=== PATIENT | male | born 1945 | race Caucasian/White ===

== ENCOUNTER → 2016-05-24 | Day surgery (SDC) | payer OTHER ==
[2016-05-18 11:19] VITALS: BMI 27.0
[~2016-05-24] VITALS: Ht 167.6 cm; Wt 77.3 kg
[~2016-05-24] MED LIST: ALEN70TA2 PO; CALC-393 PO; CHOL2000 PO; HYDR-5688 PO; LEVO50TA6 PO; LIDOCAINE HCL 2% 2 ML VIAL (20MG/ML) ONE; LOSA1TAB PO; LOVA10TA3 PO; MIDAZOLAM HCL 1 MG/ML 2ML VIAL ONE; ONDANSETRON INJ 2 MG/ML 2 ML VIAL ONE; PROPOFOL IV EMULSION 10 MG/ML 20 ML VIAL IV ONE; SODIUM CHLORIDE 0.9% 500ML 500 ML IV ONE
[2016-05-24 13:12] VITALS: Ht 167.6 cm; Wt 77.3 kg
--- NOTE | 2016-05-24 13:19 | Endo History and Physical ---
History & Physical Date of Service: May 24, 2016. Chief Complaint: History of colon polyps Referring Physician: Dr. Flaherty History of Present Illness 70 yo CM who presents for colonoscopy secondary to history of colon polyps. Past Medical History High Cholesterol, Hypertension, Other Past Surgical History Hx Cardiac Surgery: No Hx Internal Defibrillator: No Hx Pacemaker: No Hx Abdominal Surgery: No Hx of Implantable Prosthesis: No Hx Post-Op Nausea and Vomiting: No Hx Cancer Surgery: No Hx Thoracic Surgery: No Hx Orthopedic: Yes (LUMBAR DECOMPR. FUSION L3-L5 S1) Hx Urinary Tract Surgery: No Family History None Social History Smoking Status: Never Smoker Hx Substance Use: No Hx Alcohol Use: Yes (RARELY) Allergies Coded Allergies: No Known Allergies (Unverified , 05/24/16) Current Medications Reported Home Medications Medications Dose Route/Sig Max Daily Dose Days Date Category Vitamin D3 (Cholecalciferol) 2,000 Unit Cap 1 Cap PO BID 90 05/18/16 Reported Calcium (Calcium Carbonate) 600 Mg Tab 1 Tab PO BID 05/18/16 Reported Mevacor (Lovastatin) 10 Mg Tab 5 Mg PO QPM 05/18/16 Reported Cozaar (Losartan Potassium) 25 Mg Tab 25 Mg PO QAM 05/18/16 Reported Levothyroxine Sodium 50 Mcg Tab 1 Tab PO QAM 90 05/18/16 Reported Fosamax (Alendronate Sodium) 70 Mg Tab 70 Mg PO WK 05/18/16 Reported Vital Signs Weight (Kilograms): 77.27 Height (Feet): 5 Height (Inches): 6 Physical Exam General Appearance: WD/WN, no apparent distress Respiratory/Chest: Auscultation: breath sounds normal Cardiovascular: Heart Auscultation: RRR Abdomen: Bowel Sounds: normal Inspection & Palpation: soft, non-distended, no tenderness, guarding & rebound Assessment and Plan Assessment: 70 yo CM who presents for colonoscopy secondary to history of colon polyps. Plan: Proceed with colonoscopy.
--- NOTE | 2016-05-24 14:46 | Discharge Instructions ---
Endoscopy Patient Instructions Date / Procedure(s) Performed May 24, 2016. Colonoscopy Allergy Information Coded Allergies: No Known Allergies (Unverified , 05/24/16) Discharge Date / Findings May 24, 2016. Colon polyp Diverticulosis Internal hemorrhoids Medication Instructions Stopped Medication(s): NO VIT D OR CALCIUM OK to resume all medications today as prescribed Reported Home Medications Medications Dose Route/Sig Max Daily Dose Days Date Category Vitamin D3 (Cholecalciferol) 2,000 Unit Cap 1 Cap PO BID 90 05/18/16 Reported Calcium (Calcium Carbonate) 600 Mg Tab 1 Tab PO BID 05/18/16 Reported Mevacor (Lovastatin) 10 Mg Tab 5 Mg PO QPM 05/18/16 Reported Cozaar (Losartan Potassium) 25 Mg Tab 25 Mg PO QAM 05/18/16 Reported Levothyroxine Sodium 50 Mcg Tab 1 Tab PO QAM 90 05/18/16 Reported Fosamax (Alendronate Sodium) 70 Mg Tab 70 Mg PO WK 05/18/16 Reported Provider Instructions Activity Restrictions - No exercising or heavy lifting for 24 hours. - Do not drink alcohol the day of the procedure. - Do not drive a car or operate machinery until the day after the procedure. - Do not make any important decisions or sign important papers in 24 hours after the procedure. Following Day: - Return to full activity which may include returning to work/school. Diet Start your diet with liquids and light foods (jello, soup, juice, toast). Then eat your usual diet if not nauseated. Treatment For Common After Affects For mild abdominal pain, bloating, or excessive gas: - Rest - Eat lightly - Lie on right side Follow-Up Information Follow-up with PAO PARADA as scheduled Anesthesia Information What You Should Know You have had a procedure that required some medicine to reduce anxiety and discomfort. This treatment is called moderate sedation. After receiving the treatment, you may be sleepy, but you will be able to breathe on your own. The effects of the treatment may last for several hours. Follow these instructions along with Activity/Diet recommendations noted above: * Do NOT do anything where dizziness or clumsiness would be dangerous. * Rest quietly at home today, then you can be up and about tomorrow. * Have a responsible person stay with you the rest of today. * You may have had an I.V. today. If so, you may take the dressing off later today. Recommendations Call your doctor if: * Trouble breathing * Continuous vomiting for more than 24 hours * Temperature above 101 degrees * Severe abdominal pain or bloating * Pain not relieved by pain medicine ordered * There is increased drainage or redness from any incision * A large amount of rectal bleeding greater than 2-3 tablespoons. (If you had a polyp/s removed or have hemorrhoids, a small amount of blood - from the rectum is to be expected.) * You have any unanswered questions or concerns. IN THE EVENT OF A SERIOUS EMERGENCY, GO TO THE NEAREST EMERGENCY ROOM Your discharge instructions were prepared by provider Robert Alvarenga. Patient Instructions Signature Page Johnson Pearson Patient (or Guardian) Signature/Date: I have read and understand the instructions given to me by my caregivers. Caregiver/RN/Doctor Signature/Date: The above-named patient and/or guardian has received patient instructions on this date. + Original Patient Signature Page (only) stays with chart. Please make copy for patient.
--- NOTE | 2016-05-24 14:55 | GI REPORT ---
Procedure Date: 05/24/2016 2:07 PM Procedure: Colonoscopy Indications: High risk colon cancer surveillance: Personal history of colonic polyps Medicines: Monitored Anesthesia Care Complications: No immediate complications. Estimated Blood Loss: Estimated blood loss: none. Procedure: Pre-Anesthesia Assessment: - Prior to the procedure, a History and Physical was performed, and patient medications and allergies were reviewed. The patient's tolerance of previous anesthesia was also reviewed. The risks and benefits of the procedure and the sedation options and risks were discussed with the patient. All questions were answered, and informed consent was obtained. Prior Anticoagulants: The patient has taken no previous anticoagulant or antiplatelet agents. ASA Grade Assessment: II - A patient with mild systemic disease. After reviewing the risks and benefits, the patient was deemed in satisfactory condition to undergo the procedure. After I obtained informed consent, the scope was passed under direct vision. Throughout the procedure, the patient's blood pressure, pulse, and oxygen saturations were monitored continuously. The On-site loaner was introduced through the anus and advanced to the terminal ileum. The colonoscopy was performed without difficulty. The patient tolerated the procedure well. The quality of the bowel preparation was good. The terminal ileum, ileocecal valve, appendiceal orifice, and rectum were photographed. Findings: A 20 mm polyp was found in the ascending colon. The polyp was flat. The polyp was removed with a saline injection-lift technique using a hot snare. Resection and retrieval were complete. To prevent bleeding after the polypectomy, four hemostatic clips were successfully placed (MR conditional). There was no bleeding at the end of the procedure. Multiple small-mouthed diverticula were found in the sigmoid colon. Non-bleeding internal hemorrhoids were found during retroflexion. The hemorrhoids were small. Impression: - One 20 mm polyp in the ascending colon, removed using injection-lift and a hot snare. Resected and retrieved. Clips (MR conditional) were placed. - Diverticulosis in the sigmoid colon. - Non-bleeding internal hemorrhoids. Recommendation: - Resume previous diet. - Continue present medications. - Repeat colonoscopy in 6 months to review the polypectomy site. - Return to primary care physician as previously scheduled. Robert Alvarenga DO 05/24/2016 2:55:18 PM This report has been signed electronically. Note Initiated On: 05/24/2016 2:07 PM I attest to the content of the Intraoperative Record and orders documented therein, exceptions below
[2016-05-24 15:20] VITALS: BP 147/84; PULSE 69; O2SAT 98
--- NOTE | 2016-05-24 15:21 | Anesthesiology Progress Note ---
Anesthesia Post Op Note Date & Time May 24, 2016 at 15:21 Vital Signs Pain Intensity: 0 Vital Signs Past 12 Hours Date Time Temp Pulse Resp B/P Pulse Ox O2 Delivery O2 Flow Rate FiO2 05/24/16 15:05 73 18 148/83 97 Room Air 05/24/16 14:50 70 18 144/82 96 Room Air 05/24/16 13:24 36.4 90 18 134/82 98 Room Air Notes Mental Status: alert / awake / arousable, participated in evaluation Pt Amnestic to Procedure: Yes Nausea / Vomiting: adequately controlled Pain: adequately controlled Airway Patency, RR, SpO2: stable & adequate BP & HR: stable & adequate Hydration State: stable & adequate Anesthetic Complications: no major complications apparent
== END | disposition home or self-care (01) ==
LOC: C.GI 12:51
PROVIDERS: ATTEND Internal Medicine
DX: Z12.11 Encounter for screening for malignant neoplasm of colon (principal); D12.2 Benign neoplasm of ascending colon; Z86.010 Personal history of colon polyps; K64.9 Unspecified hemorrhoids; K57.31 Diverticulosis of large intestine without perforation or abscess with bleeding; I10 Essential (primary) hypertension; E78.00 Pure hypercholesterolemia, unspecified

== ENCOUNTER → 2016-10-23 | Outpatient (CLI) | payer OTHER ==
[~2016-10-23] MED LIST changes: -LIDOCAINE HCL 2% 2 ML VIAL (20MG/ML) ONE; -MIDAZOLAM HCL 1 MG/ML 2ML VIAL ONE; -ONDANSETRON INJ 2 MG/ML 2 ML VIAL ONE; -PROPOFOL IV EMULSION 10 MG/ML 20 ML VIAL IV ONE; -SODIUM CHLORIDE 0.9% 500ML 500 ML IV ONE
[2016-10-23 13:51] LABS: ALT/SGPT 38 U/L (12-78); AST/SGOT 36 U/L (15-37); BLOOD UREA NITROGEN 17 mg/dl (7-18); BUN/CREATININE RATIO 13.2 (10-20); CALCIUM 9.3 mg/dl (8.5-10.1); CARBON DIOXIDE 28 mmol/L (21-32); CHLORIDE 107 mmol/L (98-107); GLUCOSE 89 mg/dl (70-99); POTASSIUM 4.1 mmol/L (3.5-5.1); SODIUM 141 mmol/L (136-145)
[2016-10-23 14:02] LABS: CHOLESTEROL 162 mg/dl (0-200); CHOLESTEROL/HDL RATIO 4.8; HDL CHOLESTEROL 34 mg/dl; LDL CHOLESTEROL CALCULATED 94 mg/dl; PROSTATE SPECIFIC ANTIGEN 0.742 ng/ml (0.000-4.000); TRIGLYCERIDES 172 mg/dl (0-150); VERY LOW DENSITY LIPOPROT CALC 34 mg/dl
== END | disposition home or self-care (01) ==
LOC: C.LABMFLN 07:46
PROVIDERS: ATTEND Family Medicine
DX: I10 Essential (primary) hypertension (principal); E78.00 Pure hypercholesterolemia, unspecified; Z12.5 Encounter for screening for malignant neoplasm of prostate; M81.0 Age-related osteoporosis without current pathological fracture; E03.9 Hypothyroidism, unspecified; E55.9 Vitamin D deficiency, unspecified

== ENCOUNTER → 2016-12-10 | Day surgery (SDC) | payer OTHER ==
[2016-11-26 15:47] VITALS: Ht 168.9 cm; Wt 77.3 kg
[~2016-12-10] VITALS: Ht 168.9 cm; Wt 77.3 kg
[~2016-12-10] MED LIST changes: -ALEN70TA2 PO; +PROPOFOL IV EMULSION 10 MG/ML 20 ML VIAL IV ONE; +SODIUM CHLORIDE 0.9% 500ML 500 ML IV ONE
--- NOTE | 2016-12-10 13:02 | Endo History and Physical ---
History & Physical Date of Service: Dec 10, 2016. Chief Complaint: piecemeal removal of sessile serated polyp Referring Physician: Dr. Sonny Flaherty History of Present Illness 71 yo CM who presents for colonoscopy secondary to piecemeal removal of colon polyp. Past Medical History High Cholesterol, Hypertension, Other Past Surgical History Hx Cardiac Surgery: No Hx Internal Defibrillator: No Hx Pacemaker: No Hx Abdominal Surgery: No Hx Post-Op Nausea and Vomiting: No Hx Cancer Surgery: No Hx Thoracic Surgery: No Hx Orthopedic: Yes (LUMBAR DECOMPR. FUSION L3-L5 S1) Hx Urinary Tract Surgery: No Family History None Social History Smoking Status: Never Smoker Hx Substance Use: No Hx Alcohol Use: Yes (RARELY) Allergies Coded Allergies: No Known Allergies (Verified , 12/10/16) Current Medications Reported Home Medications Medications Dose Route/Sig Max Daily Dose Days Date Category Vitamin D3 (Cholecalciferol) 2,000 Unit Cap 1 Cap PO QPM 90 05/18/16 Reported Calcium (Calcium Carbonate) 600 Mg Tab 1 Tab PO DAILY AT NOON 05/18/16 Reported Mevacor (Lovastatin) 10 Mg Tab 5 Mg PO QPM 05/18/16 Reported Cozaar (Losartan Potassium) 25 Mg Tab 25 Mg PO QAM 05/18/16 Reported Levothyroxine Sodium 50 Mcg Tab 1 Tab PO QAM 90 05/18/16 Reported Vital Signs Weight (Kilograms): 77.27 Height (Feet): 5 Height (Inches): 6.5 Physical Exam General Appearance: WD/WN, no apparent distress Respiratory/Chest: Auscultation: breath sounds normal Cardiovascular: Heart Auscultation: RRR Abdomen: Bowel Sounds: normal Inspection & Palpation: soft, non-distended, no tenderness, guarding & rebound Assessment and Plan Assessment: 71 yo CM who presents for colonoscopy secondary to piecemeal removal of colon polyp. Plan: Proceed with colonoscopy.
--- NOTE | 2016-12-10 14:24 | GI REPORT ---
Procedure Date: 12/10/2016 12:58 PM Procedure: Colonoscopy Indications: High risk colon cancer surveillance: Personal history of colonic polyps Medicines: Monitored Anesthesia Care Complications: No immediate complications. Estimated Blood Loss: Estimated blood loss: none. Procedure: Pre-Anesthesia Assessment: - Prior to the procedure, a History and Physical was performed, and patient medications and allergies were reviewed. The patient's tolerance of previous anesthesia was also reviewed. The risks and benefits of the procedure and the sedation options and risks were discussed with the patient. All questions were answered, and informed consent was obtained. Prior Anticoagulants: The patient has taken no previous anticoagulant or antiplatelet agents. ASA Grade Assessment: II - A patient with mild systemic disease. After reviewing the risks and benefits, the patient was deemed in satisfactory condition to undergo the procedure. After I obtained informed consent, the scope was passed under direct vision. Throughout the procedure, the patient's blood pressure, pulse, and oxygen saturations were monitored continuously. The Scope was introduced through the anus and advanced to the terminal ileum. The colonoscopy was performed without difficulty. The patient tolerated the procedure well. The quality of the bowel preparation was good. The terminal ileum, ileocecal valve, appendiceal orifice, and rectum were photographed. Findings: Multiple small-mouthed diverticula were found in the sigmoid colon. Non-bleeding internal hemorrhoids were found during retroflexion. The hemorrhoids were small. Impression: - Diverticulosis in the sigmoid colon. - Non-bleeding internal hemorrhoids. - No specimens collected. Recommendation: - Resume previous diet. - Continue present medications. - Repeat colonoscopy in 5 years for surveillance. - Return to primary care physician as previously scheduled. Robert Alvarenga DO 12/10/2016 2:24:16 PM This report has been signed electronically. Note Initiated On: 12/10/2016 12:58 PM I attest to the content of the Intraoperative Record and orders documented therein, exceptions below
--- NOTE | 2016-12-10 14:38 | Anesthesiology Progress Note ---
Anesthesia Post Op Note Date & Time Dec 10, 2016 at 14:38 Vital Signs Pain Intensity: 0 Vital Signs Past 12 Hours Date Time Temp Pulse Resp B/P (MAP) Pulse Ox O2 Delivery O2 Flow Rate FiO2 12/10/16 13:00 36.3 61 18 145/76 (99) 96 Room Air Notes Mental Status: alert / awake / arousable, participated in evaluation Pt Amnestic to Procedure: Yes Nausea / Vomiting: adequately controlled Pain: adequately controlled Airway Patency, RR, SpO2: stable & adequate BP & HR: stable & adequate Hydration State: stable & adequate Anesthetic Complications: no major complications apparent
--- NOTE | 2016-12-10 14:55 | Discharge Instructions ---
Endoscopy Patient Instructions Date / Procedure(s) Performed Dec 10, 2016. Colonoscopy Allergy Information Coded Allergies: No Known Allergies (Verified , 12/10/16) Discharge Date / Findings Dec 10, 2016. Diverticulosis Internal hemorrhoids Medication Instructions OK to resume all medications today as prescribed Reported Home Medications Medications Dose Route/Sig Max Daily Dose Days Date Category Vitamin D3 (Cholecalciferol) 2,000 Unit Cap 1 Cap PO QPM 90 05/18/16 Reported Calcium (Calcium Carbonate) 600 Mg Tab 1 Tab PO DAILY AT NOON 05/18/16 Reported Mevacor (Lovastatin) 10 Mg Tab 5 Mg PO QPM 05/18/16 Reported Cozaar (Losartan Potassium) 25 Mg Tab 25 Mg PO QAM 05/18/16 Reported Levothyroxine Sodium 50 Mcg Tab 1 Tab PO QAM 90 05/18/16 Reported Provider Instructions Activity Restrictions - No exercising or heavy lifting for 24 hours. - Do not drink alcohol the day of the procedure. - Do not drive a car or operate machinery until the day after the procedure. - Do not make any important decisions or sign important papers in 24 hours after the procedure. Following Day: - Return to full activity which may include returning to work/school. Diet Start your diet with liquids and light foods (jello, soup, juice, toast). Then eat your usual diet if not nauseated. Treatment For Common After Affects For mild abdominal pain, bloating, or excessive gas: - Rest - Eat lightly - Lie on right side Follow-Up Information Follow-up with Dr. Sonny Flaherty as scheduled Anesthesia Information What You Should Know You have had a procedure that required some medicine to reduce anxiety and discomfort. This treatment is called moderate sedation. After receiving the treatment, you may be sleepy, but you will be able to breathe on your own. The effects of the treatment may last for several hours. Follow these instructions along with Activity/Diet recommendations noted above: * Do NOT do anything where dizziness or clumsiness would be dangerous. * Rest quietly at home today, then you can be up and about tomorrow. * Have a responsible person stay with you the rest of today. * You may have had an I.V. today. If so, you may take the dressing off later today. Recommendations Call your doctor if: * Trouble breathing * Continuous vomiting for more than 24 hours * Temperature above 101 degrees * Severe abdominal pain or bloating * Pain not relieved by pain medicine ordered * There is increased drainage or redness from any incision * A large amount of rectal bleeding greater than 2-3 tablespoons. (If you had a polyp/s removed or have hemorrhoids, a small amount of blood - from the rectum is to be expected.) * You have any unanswered questions or concerns. IN THE EVENT OF A SERIOUS EMERGENCY, GO TO THE NEAREST EMERGENCY ROOM Your discharge instructions were prepared by provider Robert Alvarenga. Patient Instructions Signature Page Johnson Pearson Patient (or Guardian) Signature/Date: I have read and understand the instructions given to me by my caregivers. Caregiver/RN/Doctor Signature/Date: The above-named patient and/or guardian has received patient instructions on this date. + Original Patient Signature Page (only) stays with chart. Please make copy for patient.
[2016-12-10 14:59] VITALS: BP 140/77; PULSE 62; O2SAT 98
== END | disposition home or self-care (01) ==
LOC: C.GI 12:15
PROVIDERS: ATTEND Internal Medicine
DX: Z12.11 Encounter for screening for malignant neoplasm of colon (principal); K57.30 Diverticulosis of large intestine without perforation or abscess without bleeding; K64.8 Other hemorrhoids; Z86.010 Personal history of colon polyps; E78.00 Pure hypercholesterolemia, unspecified; I10 Essential (primary) hypertension; Z79.899 Other long term (current) drug therapy

== ENCOUNTER 2017-01-03 06:33 | Day surgery (SDC) | payer OTHER ==
[2016-12-12 09:16] VITALS: BMI 26.0
--- NOTE | 2016-12-12 09:54 | PAT Medication Instructions ---
Service Date Dec 12, 2016. Current Home Medication List Calcium Carbonate (Calcium), 1 TAB PO DAILY AT NOON Cholecalciferol (Vitamin D3), 1 CAP PO DAILY AT NOON Levothyroxine Sodium (Levothyroxine Sodium), 1 TAB PO QAM Losartan Potassium (Cozaar), 25 MG PO QAM Lovastatin (Mevacor), 5 MG PO QPM Medication Instructions For Your Scheduled Surgery - Hold the following medications the morning of surgery: Calcium Carbonate (Calcium), 1 TAB PO DAILY AT NOON Cholecalciferol (Vitamin D3), 1 CAP PO DAILY AT NOON Losartan Potassium (Cozaar), 25 MG PO QAM - Take the following medications the morning of surgery with a sip of water otherwise nothing to eat or drink after midnight: Levothyroxine Sodium (Levothyroxine Sodium), 1 TAB PO QAM - Take the following medications as scheduled the night before surgery: Lovastatin (Mevacor), 5 MG PO QPM If you have any questions please call us at [phone] or [phone] or [phone]
[2016-12-12 10:41] LABS: BASO % 0.2 %; BASO ABS # 0.01 K/uL (0-0.2); COMPLETE YES; EOS % 1.2 %; HEMATOCRIT 43.9 % (42-52); IG% 0.2 %; LYMPH % 18.6 %; LYMPH ABS # 1.11 K/uL (1.2-3.4); MEAN CELL VOLUME 92.2 fL (80-100); MEAN CORPUSCULAR HEMOGLOBIN 33.6 pg (25-34); MEAN CORPUSCULAR HGB CONC 36.4 g/dl (32-36); MEAN PLATELET VOLUME 9.6 fL (7.4-10.4); MONO % 9.7 %; NEUT % 70.1 %; PLATELET COUNT 187 K/uL (130-400); RED BLOOD COUNT 4.76 M/uL (4.7-6.1); WHITE BLOOD COUNT 5.96 K/uL (4.8-10.8)
[2016-12-12 10:48] LABS: BUN/CREATININE RATIO 10.9 (10-20); CALCIUM 9.5 mg/dl (8.5-10.1); CREATININE 1.1 mg/dl (0.60-1.40); POTASSIUM 4.4 mmol/L (3.5-5.1)
[~2017-01-03] VITALS: Ht 170.2 cm; Wt 77.7 kg
[~2017-01-03 06:33] MED LIST changes: +CEFAZOLIN 2000 MG/60 ML D5W IV SCH; -HYDR-5688 PO; +LACTATED RINGER'S 1000ML 1,000 ML IV SCH; -PROPOFOL IV EMULSION 10 MG/ML 20 ML VIAL IV ONE; -SODIUM CHLORIDE 0.9% 500ML 500 ML IV ONE
[2017-01-03 07:02] VITALS: BP 139/85; PULSE 61; TEMP 36.4; O2SAT 96; Ht 170.2 cm; Wt 77.7 kg
[2017-01-03] MEDS ORDERED: MIDAZOLAM HCL 1 MG/ML 2ML VIAL ONE (07:48)
[2017-01-03] MEDS ORDERED: LIDOCAINE HCL 2% 2 ML VIAL (20MG/ML) ONE (07:48)
[2017-01-03] MEDS ORDERED: PROPOFOL IV EMULSION 10 MG/ML 20 ML VIAL IV ONE (07:48)
[2017-01-03] MEDS ORDERED: FENTANYL CITRATE INJ 50 MCG/1 ML 2 ML VIAL ONE ×2 (07:49→09:44)
--- NOTE | 2017-01-03 08:07 | History & Physical Bridge Note ---
H&P Re-Evaluation Bridge Note: I have examined the patient, reviewed the History & Physical and in the interval since the performance of the History & Physical I have noted the following changes of clinical significance: No changes noted
[2017-01-03] MEDS ORDERED: BUPIVACAINE/EPINEPHRINE 0.5% MPF 1:200,000 30 ML VIAL ONE (08:31)
[2017-01-03] MEDS ORDERED: HYDR-5688 PO (08:47)
--- NOTE | 2017-01-03 08:48 | Discharge Instructions ---
Discharge Instructions Date of Service Jan 03, 2017. Visit Reason for Visit: Bilateral Inguinal Hernias Discharge Discharge Diagnosis / Problem: inguinal hernia repairs Discharge Goals Goal(s): Decrease discomfort Activity Recommendations Activity Limitations: as noted below Lifting Limitations: no more than 10 pounds Shower/Bathe: tomorrow Driving or Machine Use: 1 week Anesthesia . Post Anesthesia Instructions: If you have had General Anesthesia or IV Sedation: * Do not drive today. * Resume driving when surgeon permits. * Do not make important decisions or sign legal documents today. * Call surgeon for: 1. Temperature elevations greater than 101 degrees F. 2. Uncontrollable pain. 3. Excessive bleeding. 4. Persistent nausea and vomiting. 5. Medication intolerance (nausea, vomiting or rash). * For nausea and vomiting use only clear liquids such as: tea, soda, bouillon until nausea subsides, then gradually increase diet as tolerated. * If you have any concerns or questions, call your surgeon's office. If physician is unavailable and it is an emergency, call 911 or go to the nearest emergency room. . Instructions / Follow-Up Instructions / Follow-Up Dr. Hernandez in 1-2 weeks as planned, call [phone] for any questions Ice each groin off and on alternating left and right every 20 minutes today Diet Recommendations Recommended Home Diet: no limitations Pending Studies Studies pending at discharge: no Medical Emergencies . Who to Call and When: Medical Emergencies: If at any time you feel your situation is an emergency, please call 911 immediately. . Non-Emergent Contact Non-Emergency issues call your: Surgeon Call Non-Emergent contact if: you have a fever, temperature is above 101.5, your pain is not controlled, wound has increased pain, you have any medication questions . . "Provider Documentation" section prepared by Josef Fox. .
[2017-01-03] MEDS ORDERED: ONDANSETRON INJ 2 MG/ML 2 ML VIAL ONE (09:00)
[2017-01-03] MEDS ORDERED: KETOROLAC TROMETHAMINE 30 MG/ML VIAL ONE (09:00)
[2017-01-03] MEDS ORDERED: DEXAMETHASONE SOD INJ 4 MG/ML VIAL ONE (09:00)
[2017-01-03] MEDS ORDERED: LACTATED RINGER'S 1000ML 1,000 ML IV SCH (10:02)
--- NOTE | 2017-01-03 10:07 | Anesthesiology Progress Note ---
Anesthesia Post Op Note Date & Time Jan 03, 2017 at 10:06 Vital Signs Pain Intensity: 0 Vital Signs Past 12 Hours Date Time Temp Pulse Resp B/P (MAP) Pulse Ox O2 Delivery O2 Flow Rate FiO2 01/03/17 07:02 36.4 61 18 139/85 (103) 96 Room Air Notes Mental Status: alert / awake / arousable, participated in evaluation Pt Amnestic to Procedure: Yes Nausea / Vomiting: adequately controlled Pain: adequately controlled Airway Patency, RR, SpO2: stable & adequate BP & HR: stable & adequate Hydration State: stable & adequate Anesthetic Complications: no major complications apparent
[2017-01-03] MEDS ORDERED: ONDANSETRON INJ 2 MG/ML 2 ML VIAL IV PRN (10:15)
[2017-01-03] MEDS ORDERED: KETOROLAC TROMETHAMINE 15 MG/ML VIAL IV. PRN (10:15)
[2017-01-03] MEDS ORDERED: MoRPHine SULFATE 2 MG/ML CARP IV PRN (10:15)
[2017-01-03] MEDS ORDERED: HYDROCODONE/ACETAMOPHEN 5/325MG TAB PO PRN (10:15)
--- NOTE | 2017-01-03 10:27 | [facility] Operative Report ---
Operative Report Operative Date Jan 03, 2017. Pre-Operative Diagnosis Bilateral Inguinal Hernia Post-Operative Diagnosis direct Bilateral Inguinal Hernias Procedure(s) Performed Open Bilateral Inguinal Hernia Repair with Mesh; plug and patch mesh on left side. Surgeon Dr. Hernandez Custom Grinder Surgeon(s) Yusuf Fox PA-C Estimated Blood Loss 10ML Findings moderate direct RIH; Large direct LIH Specimens None per surgeon Anesthesia get Disposition Recovery Room / PACU Description of Procedure After informed consent was obtained the patient was taken to the operating suite and placed in a supine position. After successful placement of the laryngeal mask airway the groins bilaterally were shaved and sterilely prepped and draped in usual fashion. We began on the right side. An inguinal incision was made with a 15 blade scalpel and carried down through the soft tissue using electrocautery. The external oblique aponeurosis was skeletonized and a fresh blade was used to make a small incision in it. Metzenbaum scissors were used to extend this down through the external ring as well as for several centimeters proximally. Once in the inguinal canal we were able to gently pull the cord and cord structures off the pubic bone with finger dissection and place a [place] around it. Immediately upon doing this we noticed the patient had a moderate size direct defect. We used small amounts electrocautery and blunt dissection to evaluate the cord and cord structures. There was no evidence whatsoever of an indirect hernia. The direct hernia was easily reducible and we used an onlay polypropylene mesh that was keyholed. We secured it distally to Murphy's ligament , laterally along the shelving portion of Poupart ligament and medially along the midline musculature. The "arms" were wrapped around the cord structures and secured to underlying muscle. We used 0 Ethibond for the sutures. We thoroughly irrigated the wound there was adequate hemostasis. We did inject some Marcaine around the edges of the mesh for postoperative analgesia. The mesh laid nice and tension free. We then closed the external oblique aponeurosis with 2-0 Vicryl in a running fashion. Soft tissue was irrigated and closed using 3-0 Vicryl and 4-0 Monocryl for the skin. Some additional Marcaine was injected around the skin and Dermabond was used as a dressing. We used the exact same technique for the left side. Upon entering the inguinal canal there was a very large what turned out to be direct hernia. We did skeletonized the cord and cord structures and again there was no evidence of an indirect hernia. Because of the large size it was somewhat difficult to keep reduced. We used an extra-large plug and patch mesh system. The plug was placed into the large defect secured to the midline musculature as well as the shelving portion of Poupart's ligament with 0 Ethibond. We then used a keyhole polypropylene mesh as an onlay and again secured it to Murphy's ligament distally and the shelving portion of Poupart's ligament laterally and the midline musculature medially. Again the arms were wrapped around behind the cord structures and secured underlying muscle. This mesh also laid tension free. There was adequate hemostasis. We thoroughly irrigated the wound. We closed the external oblique aponeurosis with 2-0 Vicryl soft tissue with 3-0 Vicryl and skin with 4-0 Monocryl. Marcaine was also injected for postoperative analgesia and dermabond glue was used as a dressing. The patient was then extubated and transferred recovery in stable condition I attest to the content of the Intraoperative Record and any orders documented therein. Any exceptions are noted below.
[2017-01-03 11:01] VITALS: TEMP 36.2
[2017-01-03 11:50] VITALS: BP 128/78; PULSE 70; O2SAT 95
== END 2017-01-03 12:04 | disposition home or self-care (01) ==
LOC: C.ACU 06:33
PROVIDERS: ATTEND Surgery
DX: K40.20 Bilateral inguinal hernia, without obstruction or gangrene, not specified as recurrent (principal); I10 Essential (primary) hypertension; M19.90 Unspecified osteoarthritis, unspecified site; E78.00 Pure hypercholesterolemia, unspecified; E03.9 Hypothyroidism, unspecified; M54.16 Radiculopathy, lumbar region; M81.0 Age-related osteoporosis without current pathological fracture; E55.9 Vitamin D deficiency, unspecified; Z86.010 Personal history of colon polyps; Z82.3 Family history of stroke; Z82.49 Family history of ischemic heart disease and other diseases of the circulatory system

== ENCOUNTER → 2017-05-07 | Outpatient (CLI) | payer OTHER ==
[~2017-05-07] MED LIST changes: -CEFAZOLIN 2000 MG/60 ML D5W IV SCH; +HYDR-5688 PO; -LACTATED RINGER'S 1000ML 1,000 ML IV SCH
== END | disposition home or self-care (01) ==
LOC: C.LABMFLN 09:39
PROVIDERS: ATTEND Family Medicine
DX: E78.00 Pure hypercholesterolemia, unspecified (principal); E03.9 Hypothyroidism, unspecified

== ENCOUNTER → 2017-05-31 | Outpatient (CLI) | payer OTHER | END | disposition home or self-care (01) | LOC: C.LABMFLN 09:39 | PROVIDERS: ATTEND Family Medicine | DX: Z11.59 Encounter for screening for other viral diseases (principal) ==

== ENCOUNTER → 2017-10-31 | Outpatient (CLI) | payer OTHER ==
[~2017-10-31] MED LIST changes: -HYDR-5688 PO
== END | disposition home or self-care (01) ==
LOC: C.LABMFLN 08:30
PROVIDERS: ATTEND Family Medicine
DX: R30.0 Dysuria (principal)

== ENCOUNTER → 2017-11-14 | Outpatient (CLI) | payer OTHER ==
[2017-11-14 13:08] LABS: ALT/SGPT 34 U/L (12-78); AST/SGOT 44 U/L (15-37); BLOOD UREA NITROGEN 23 mg/dl (7-18); CALCIUM 8.8 mg/dl (8.5-10.1); CARBON DIOXIDE 27 mmol/L (21-32); CHOLESTEROL 181 mg/dl (0-200); CREATININE 1.13 mg/dl (0.60-1.40); GLUCOSE 92 mg/dl (70-99); LDL CHOLESTEROL CALCULATED 117 mg/dl; SODIUM 136 mmol/L (136-145)
== END | disposition home or self-care (01) ==
LOC: C.LABMFLN 08:19
PROVIDERS: ATTEND Family Medicine
DX: N39.0 Urinary tract infection, site not specified (principal); I10 Essential (primary) hypertension; E78.00 Pure hypercholesterolemia, unspecified; M85.80 Other specified disorders of bone density and structure, unspecified site; E03.9 Hypothyroidism, unspecified